=== PATIENT | male | born 2000 | race Caucasian/White ===

== ENCOUNTER 2022-02-05 23:03 | Inpatient (IN) | payer OTHER ==
[~2022-02-05] VITALS: Ht 185.4 cm; Wt 75.7 kg
--- NOTE | 2022-02-05 23:15 | NUR ---
BIBSELF C/O EATING STEAK FOR DINNER, DIDN'T FULLY SWALLOW, FEELS LIKE IT'S BEEN STUCK. PLACED COMFORTABLY IN BED. VITALS CHECKED. PATIENT IS ALERT, ORIENTED X4. BREATHING NORMALLY.
--- NOTE | 2022-02-05 23:24 | NUR ---
PATIENT BEING WHEELED TO RADIOLOGY DEPT FOR CT SCAN
[2022-02-06] MEDS ORDERED: ONDANSETRON HCL/PF 4 MG/2 ML VIAL ONE ×2 (01:11→02:05)
[2022-02-06] MEDS ORDERED: ONDANSETRON HCL/PF 4 MG/2 ML VIAL IM ONE (01:30)
[2022-02-06] MEDS ORDERED: GLUCAGON,HUMAN RECOMBINANT 1 MG/VIAL VIAL IV ONE (02:00)
--- NOTE | 2022-02-06 02:00 | NUR ---
DR MCNAIR PAGED PER DR GUTIERREZ.
[2022-02-06] MEDS ORDERED: GLUCAGON,HUMAN RECOMBINANT 1 MG/VIAL VIAL ONE (02:04)
[2022-02-06] MEDS ORDERED: WATER FOR INJECTION,STERILE 10 ML ONE (02:05)
[2022-02-06] MEDS ORDERED: MORPHINE SULFATE INJ 4 MG/ML DISP.SYRIN ONE (02:05)
--- NOTE | 2022-02-06 02:21 | NUR ---
[employer] ARCHITECT AT PT'S BEDSIDE
[2022-02-06 02:23] LABS: BASOPHILS # (AUTO) 0.1 K/uL (0.0-0.2); HEMOGLOBIN 16.8 g/dL (13.5-17.5); LYMPHOCYTES # (AUTO) 1.3 K/uL (0.8-4.8)
[2022-02-06 02:30] LABS: CALCIUM, SERUM 9.6 mg/dL (8.5-10.1); CREATININE 1.1 mg/dL (0.6-1.3); POTASSIUM 2.9 mmol/L (3.5-5.1)
[2022-02-06] MEDS ORDERED: MORPHINE SULFATE INJ 2 MG/ML DISP.SYRIN IV ONE (02:30)
[2022-02-06] MEDS ORDERED: ONDANSETRON HCL/PF 4 MG/2 ML VIAL IV ONE (02:30)
--- NOTE | 2022-02-06 02:40 | NUR ---
PER DR. GUTIERREZ. PT ON NPO DIET. ORDERS CARRIED OUT
[2022-02-06] MEDS ORDERED: POTASSIUM CHLORIDE 10 MEQ/50 ML PREMIXED IVPB FOR PERIPHERAL LINE IV ONE (03:00)
[2022-02-06] MEDS ORDERED: POTASSIUM CL. PREMIX PERIPHER. 100 ML ONE (03:01)
[2022-02-06 03:22] LABS: BASOPHILS % (AUTO) 0.3 % (0.0-2.0); EOSINOPHILS % (AUTO) 0.3 % (0.0-6.0); HEMATOCRIT 50 % (39-51); LYMPHOCYTES % (AUTO) 7.4 % (20.0-44.0); MEAN CORPUSCULAR HGB CONC 34 g/dl (31.0-36.0); MEAN CORPUSCULAR VOLUME 92 fL (80-96); MONOCYTES % (AUTO) 5.6 % (2.0-12.0); NEUTROPHILS % (AUTO) 86.4 % (43.0-81.0); PLATELET COUNT (AUTO) 261 K/uL (150-450); RED BLOOD CELL COUNT(AUTO) 5.42 MIL/uL (4.5-6.0); WHITE BLOOD COUNT (AUTO) 17.4 K/uL (4.3-11.0)
--- NOTE | 2022-02-06 03:31 | NUR ---
REPORT GIVEN TO BRENDA EVA
--- NOTE | 2022-02-06 03:37 | NUR ---
PATIENT TRANSFERRED, NO ACUTE DISTRESS NOTED.
[2022-02-06 03:58] VITALS: BP 138/76
--- NOTE | 2022-02-06 04:00 | NUR ---
DIALYSIS BIOMED TECHNICIAN NOTES: RECEIVED PATIENT AWAKE VIA GURNEY, PLACED COMFOTABLY ON BED, BED IN LOW POSITION, CALL LIGHTS WITHIN REACH, NO COMPLAIN OF PAIN AND DISCOMFORT AT THIS TIME, SKIN ASSESSMENT DONE SKIN IS INTACT, N SKIN ISSUES OBSERVED, INVENTORY DONE SIGNED, PATIENT IS NPO, WITH IV LINE AT RFA #20 WITH ONGOING KCL at 3ML/HR PATIENT ON D5NS@75ML PER HOUR TO FOLLOW, ON ROOM AIR SATURATING WELL, A/OX4 ABLE TO MAKE NEEDS KNOWN, [facility] AMB[facility]AT[facility], PATIENT KEPT CLEAN AND DRY ALL NEEDS MET WILL CONTINUE TO MONITOR
[2022-02-06] MEDS: IV D5/0.45 NACL 1,000 ML IV PRN ×2 (05:06→21:41)
[2022-02-06] MEDS: ONDANSETRON HCL/PF 4 MG/2 ML VIAL IVP PRN ×2 (05:08→11:09)
--- NOTE | 2022-02-06 06:45 | NUR ---
RN CLOSING NOTES: PATIENT WAS AWAKE IN BED, BED IN LOW POSITION CALL LIGHT WITHIN REACH, NO COMPLAIN OF PAIN AND DISCOMFORT AT THIS TIME PATIENT IS A/OX4 AMBULATORY ABLE TO MAKE NEEDS KNOWN, WITH IV LINE AT RFA#20 WITH ONGOING D5 1/2NSS@75 ML/HR INFUSING WELL, ON NPO, PATIENT KEPT CLEAN AND DRY ALL NEEDS MET ENDORSE TO INCOMING SHIFT.
--- NOTE | 2022-02-06 07:10 | NUR ---
MS RN OPENING NOTE RECEIVED PATIENT IN BED ALERT AND ORIENTED. WITH RIGHT FOREARM IV ACCESS G 20, WITH IVF RUNNING AT D5 1/2 NS AT 75 ML/HR. ON ROOM AIR WITH NO MOTOR DEFICIT. COMPLAINED OF SOME DISCOMFORT, HAD MORPHINE AT 0220. PROVIDED WITH CALM AND QUIET ENVIRONMENT. PATIENT IS AMBULATORY WITH STEADY GAIT AND NO MOTOR DEFICIT. PATIENT KEPT NPO ORDERED. AWAITING GI CONSULT. SAFETY MEASURES ENSURED WITH BED AT LOWEST LOCKED POSITION, SIDERAILS RAISED AND BED ALARM ON. CALL LIGHT WITHIN REACH AT ALL TIMES.
[2022-02-06 08:00] VITALS: BP 122/67
[2022-02-06] MEDS: PANTOPRAZOLE 40 MG VIAL IV SCH (08:44)
[2022-02-06] MEDS: MORPHINE SULFATE INJ 2 MG/ML DISP.SYRIN IV PRN ×2 (09:22→17:37)
[2022-02-06] MEDS: POTASSIUM CL. PREMIX PERIPHER. 50 ML IV SCH ×4 (11:05→19:29)
--- NOTE | 2022-02-06 11:50 | NUR ---
MS RN NOTE PATIENT PICKED UP FOR SCHEDULED PROCEDURE. ENDORSED TO OR NURSE, ALLERGY AND HISTORY OF ASTHMA. IN STABLE CONDITION.
--- NOTE | 2022-02-06 13:40 | NUR ---
MS RN NOTE PATIENT BACK FROM OR. PATIENT ALERT AND ORIENTED. FOREIGN BODY REMOVED ENDORSED. WILL START PATIENT ON DIET ORDERED. IN STABLE CONDITION. Addendum: 02/06/22 at 1406 by JING KENDRICK RN ADDENDUM. IVF AND POTASSIUM CORRECTION RE-STARTED. PATIENT ONLY ABLE TO TOLERATE RATE AT 20-30ML/HR.
[2022-02-06 16:00] VITALS: BP 119/75
--- NOTE | 2022-02-06 18:48 | NUR ---
MS RN CLOSING NOTE PATIENT IN BED ALERT AND ORIENTED X4. WITH RIGHT FOREARM IV ACCESS G 20, WITH IVF POTASSIUM FOR REPLACEMENT RUNNING AT 25ML/HR TOLERATED BY PATIENT. ON ROOM AIR WITH NO MOTOR DEFICIT. COMPLAINED OF HEADACHE, WAS GIVEN MORPHINE AT 1737. PROVIDED WITH CALM AND QUIET ENVIRONMENT. PATIENT IS AMBULATORY WITH STEADY GAIT AND NO MOTOR DEFICIT. PATIENT HAD SOME DINNER AND ABLE TO TOLERATE WELL. SAFETY MEASURES ENSURED WITH BED AT LOWEST LOCKED POSITION, SIDERAILS RAISED AND BED ALARM ON. CALL LIGHT WITHIN REACH AT ALL TIMES. ENDORSED TO NEXT SHIFT FOR CONTINUITY OF CARE.
--- NOTE | 2022-02-06 19:15 | NUR ---
RN NOTE PT AWAKE IN BED, A/OX4. DENIES PAIN/SOB/ N/V. RESPIRATIONS EVEN/UNLABORED. IV SITE R-FA #20G INTACT/PATENT, RUNNING IV POTASSIUM REPLACEMENT PIGGYBACK @25ML/HR AND IVF @75ML/HR, ROSE MARIE BY PT. PT STATES HE'S EATING BETTER NOW. PT IN NO ACUTE DISTRESS. SAFETY MEASURES IN PLACE. WILL CONT TO MONITOR.
[2022-02-06 20:02] VITALS: BP 123/75
[2022-02-07 06:52] LABS: BASOPHILS % (AUTO) 0.3 % (0.0-2.0); HEMATOCRIT 43 % (39-51); HEMOGLOBIN 14.8 g/dL (13.5-17.5); LYMPHOCYTES # (AUTO) 0.9 K/uL (0.8-4.8); MEAN CORPUSCULAR HGB CONC 34 g/dl (31.0-36.0); MEAN CORPUSCULAR VOLUME 93 fL (80-96); MONOCYTES # (AUTO) 0.5 K/uL (0.1-1.30); MONOCYTES % (AUTO) 7.4 % (2.0-12.0); NEUTROPHILS # (AUTO) 5.7 K/uL (1.8-8.9); NEUTROPHILS % (AUTO) 77.3 % (43.0-81.0); PLATELET COUNT (AUTO) 158 K/uL (150-450); RED BLOOD CELL COUNT(AUTO) 4.65 MIL/uL (4.5-6.0); WHITE BLOOD COUNT (AUTO) 7.3 K/uL (4.3-11.0)
--- NOTE | 2022-02-07 07:15 | NUR ---
MS RN NOTES PATIENT IN BED, ALERT ORIENTED X 4. NO ACUTE DISTRESS NOTED. BREATHING UNLABORED. IV ACCESS PATENT AND INTACT, NO REDNESS, NO SWELLING, NO BLEEDING NOTED. DENIED ANY PAIN AT THIS TIME. SAFETY MEASURES IN PLACE. CALL LIGHT WITHIN REACH. WILL CONTINUE TO MONITOR ACCORDINGLY.
[2022-02-07 07:18] LABS: MAGNESIUM 1.6 mg/dL (1.8-2.4); PHOSPHORUS 3.9 mg/dL (2.5-4.9)
[2022-02-07] MEDS ORDERED: ALBU18HF2 IH (07:36)
[2022-02-07 08:00] VITALS: BP 126/66
[2022-02-07] MEDS: PANTOPRAZOLE 40 MG VIAL IV SCH (08:41)
[2022-02-07] MEDS ORDERED: HYDROCODONE/APAP 5/325MG TABLET PO ONE (09:30)
[2022-02-07] MEDS ORDERED: FAMO-131 PO (09:35)
[2022-02-07] MEDS ORDERED: MAGNESIUM OXIDE 400 MG TABLET PO ONE (10:00)
--- NOTE | 2022-02-07 13:30 | NUR ---
MS RN NOTES PATIENT DISCHARGE HOME WITH STABLE VITAL SIGNS, ALERT ORIENTED X 4. NO ACUTE DISTRESS NOTED. BREATHING UNLABORED. IV ACCESS REMOVED NO REDNESS, NO SWELLING, NO BLEEDING NOTED. DENIED ANY PAIN AT THIS TIME.DISCHARGE INSTRUCTIONS GIVEN TO THE PATIENT , VERBALIZED UNDERSTANDING. ALL BELONGINGS ACCOUNTED FOR. ASSISTED TO THE LOBBY, PICKED UP VIA PRIVATE CAR IN STABLE CONDITION. ACCOMPANIED BY GIRLFRIEND
== END 2022-02-07 13:30 | disposition home or self-care (01) | DRG 395 ==
LOC: ER 23:03 → MED 02-06 03:06
PROVIDERS: ADMIT Internal Medicine; ATTEND Nurse Practitioner Family
PROC: 0DC28ZZ Extirpation of Matter from Middle Esophagus, Via Natural or Artificial Opening Endoscopic (ICD-10-PCS; principal; 2022-02-06)
DX: T18.128A Food in esophagus causing other injury, initial encounter (principal); X58.XXXA Exposure to other specified factors, initial encounter; Y92.9 Unspecified place or not applicable; Z20.822 Contact with and (suspected) exposure to COVID-19; K29.70 Gastritis, unspecified, without bleeding; D72.829 Elevated white blood cell count, unspecified; R13.10 Dysphagia, unspecified; Y93.9 Activity, unspecified; Y92.009 Unspecified place in unspecified non-institutional (private) residence as the place of occurrence of the external cause; F43.9 Reaction to severe stress, unspecified
CPT/HCPCS: 36415; 70490-TC; 71045-TC; 80048-TC; 83735-TC; 84100-TC; 85025-TC; 85730-TC; 87081-TC; C9113; C9803; G0378; J0330; J1610; J2270; J2405; J2704; J3480; J3490; J7030; J7042; J7050